=== PATIENT | female | born 1945 | race Caucasian/White ===

== ENCOUNTER 2023-10-22 22:38 | Emergency (ER) | payer MEDICARE, OTHER, SELFPAY ==
[2023-10-22 22:48] VITALS: BP 138/105
[2023-10-23 00:23] VITALS: BMI 36.8
[2023-10-23 00:27] VITALS: BP 116/68
[2023-10-23] MEDS: NORCO 5/325 1 TABLET PO (00:52)
[2023-10-23] MEDS: TORADOL 15 MG IM (00:52)
[2023-10-23 01:00] VITALS: BP 122/63
[2023-10-23 02:00] VITALS: BP 108/57
[2023-10-23] MEDS: ZOFRAN 4 MG IV (02:22)
[2023-10-23] MEDS: DILAUDID 0.5 MG IV (02:24)
--- NOTE | 2023-10-23 02:29 | ED.MUSCINJ ---
HPI-Injury
General
Chief Complaint: Extremity Pain (non-traumatic)
Source: patient
Exam Limitations: none
Time Seen by Provider: 10/23/23 00:29
Nursing documentation reviewed up to this point in time: agreed with
Travel History
Have you had any contact with someone who has COVID-19?: No
Do you have any symptoms of coronavirus? Fever > 100 degrees, chills, cough, shortness of breath, sore throat, loss of taste or smell, muscle aches, or headache?: No
History of Present Illness-Injury
Is this injury a work related problem?: No
Is pt an associate of [facility]?: No
Initial Injury comments:
Patient to ED with complaint of sharp stabbing pain to right lateral thigh. Symptoms started tonight. No history of trauma. No prior history of same. Denies fever/chills, recent illness. No skin rash. Brought to ED by spouse for eval. No
associated back pain. No aggravating or alleviating factors.
Past History
Past History
ED Past Medical History: Cancer (past history of breast CA) and GERD
Social History
Personal:
Living: with family
Employment: Employed
Review of Systems
Review of Systems
Allergies reviewed?: Yes
All Other Systems: ROS reviewed and negative except as documented in HPI and ROS
Constitutional: Reports no symptoms
EENT: Reports no symptoms
Respiratory: Reports no symptoms
Cardiac: Reports no symptoms
ABD/GI: Reports no symptoms
Musculoskeletal: Reports no symptoms
Skin: Reports no symptoms
Neurological: Reports other (stabbing pain to right lateral thigh)
Psychiatric: Reports no symptoms
Phy Exam
General Physical Exam
General Presentation: well appearing and no apparent distress
General age: appears stated age
General Skin: warm and dry
General Habitus: normal
General Mental: alert
General Hydration: appears well hydrated
Musculoskeletal Exam
Musculoskeletal Exam: full ROM, neuro vasc intact and other (stabbing pain sensation to right lateral thigh)
Skin Exam
Skin Exam: normal color, warm/dry and no rash
Psychiatric Exam
Psychiatric Exam: normal mood/affect
Injury Course
Orders/Labs/Results
Orders:
Orders
10/23/23 00:42
Ketorolac [Toradol] 15 mg IM NOW STA
10/23/23 00:43
Hydrocodone 5/APAP 325 [Dawson 5/325] 1 tablet PO NOW STA
10/23/23 02:18
HYDROmorphone [Dilaudid] 0.5 mg IV NOW STA
Ondansetron Injectable [Zofran] 4 mg IV NOW STA
ED Attending Note
-
Portions of this chart may have been created with voice recognition software.� Occasional wrong word or��sound alike� substitutions may have occurred due to the inherent limitations of voice recognition software.
Discharge Plan
Departure
Prescriptions:
No Action
hydrocodone-acetaminophen 7.5 MG/750 MG tablet
1 tab PO Q4HPRN PRN (Reason: PAIN) Qty: 20 0RF
Referrals:
Jessica Fisher MD [Family Provider] -
Interventions
Interventions:
*Risk Screen - Suicide Last Done: 10/22/23 22:52
*General Assessment Last Done: 10/22/23 22:52
*Neglect/Abuse Screening Last Done: 10/22/23 22:52
ED- Fall Risk Assessment Last Done: 10/22/23 22:52
*ED COVID-19 Vaccine History Last Done: 10/22/23 22:52
ED-Skin Assessment Last Done: 10/23/23 00:24
ED-Musculoskeletal Assessment Last Done: 10/23/23 00:24
Discharge Date and Time
Print Language: PALAUAN
== END 2023-10-23 03:22 | disposition home or self-care (01) ==
LOC: EMR 22:38
PROVIDERS: EMERGENCY PHYSICIAN Emergency Medicine; FAMILY PHYSICIAN Internal Medicine
DX: M79.651 Pain in right thigh (principal)
CPT/HCPCS: 99284; 96374; 96375; 96372

== ENCOUNTER → 2024-01-14 10:08 | Outpatient (REF) | payer MEDICARE, OTHER, SELFPAY | LOC: WDC 10:08 | PROVIDERS: ATTENDING PHYSICIAN Internal Medicine | DX: N63.20 Unspecified lump in the left breast, unspecified quadrant (principal) | CPT/HCPCS: 76642; 77062; 77066 ==

== ENCOUNTER → 2024-02-17 13:12 | Outpatient (REF) | payer MEDICARE, OTHER, SELFPAY | LOC: RAD 13:12 | PROVIDERS: ATTENDING PHYSICIAN Internal Medicine | DX: M81.0 Age-related osteoporosis without current pathological fracture (principal) | CPT/HCPCS: 77080 ==

== ENCOUNTER → 2024-03-01 06:47 | Day surgery (SDC) | payer MEDICARE, OTHER, SELFPAY | LOC: GI 06:47 | PROVIDERS: ATTENDING PHYSICIAN Internal Medicine; FAMILY PHYSICIAN Internal Medicine | DX: Z12.11 Encounter for screening for malignant neoplasm of colon (principal); K57.30 Diverticulosis of large intestine without perforation or abscess without bleeding; R15.0 Incomplete defecation | CPT/HCPCS: G0121 ==